=== PATIENT | female | born 1955 | race Caucasian/White ===

== ENCOUNTER 2017-07-31 06:49 | Day surgery (SDC) | payer OTHER ==
[~2017-07-31] VITALS: Ht 165.1 cm; Wt 70.4 kg
[2017-07-31] VITALS (11 sets, daily range): BP systolic 107–143; BP diastolic 61–78; PULSE 56–72
[2017-07-31 07:29] LABS: HEMATOCRIT 43.2 % (37.0-47.0); MEAN CELL VOLUME 92 fl (80.0-100.0); MEAN CORPUSCULAR HEMOGLOBIN 30 pg (27.0-31.0); MEAN CORPUSCULAR HGB CONC 32 g/dl (33.0-37.0); MEAN PLATELET VOLUME 10.2 fl (7.4-10.4); PLATELET COUNT 233 K/mm3 (130-400); RED BLOOD COUNT 4.72 M/mm3 (4.10-5.30); REDCELL DISTRIBUTION WIDTH-CV 12.1 % (11.5-14.5); WHITE BLOOD COUNT 7.5 K/mm3 (4.8-10.8)
[2017-07-31] MEDS ORDERED: PROAIR HFA0.09 MG/AC IH (07:36)
[2017-07-31] MEDS ORDERED: ASMANEX HF100 MCG/Ac IH (07:36)
[2017-07-31] MEDS ORDERED: NITROSTAT0.4 MG/TAB SL (07:36)
[2017-07-31] MEDS ORDERED: FIORICET 325 MG1 TA1 PO (07:37)
[2017-07-31 07:38] LABS: CALCIUM 9.8 mg/dL (8.4-10.2); CREATININE, serum 0.66 mg/dL (0.52-1.25); POTASSIUM 3.8 mmol/L (3.4-5.0)
[2017-07-31] MEDS ORDERED: ADVIL200 MG PO (07:39)
[2017-07-31] MEDS ORDERED: MULTIPLE VITAMI1 CAP PO (07:40)
[2017-07-31] MEDS ORDERED: ASPIRIN 81M81 MG/TA2 PO (07:41)
[2017-07-31] MEDS ORDERED: SUDAFED30 MG PO (07:41)
[2017-07-31] MEDS ORDERED: BENADRYL25 M2 PO (07:42)
[2017-07-31 07:48] LABS: PROTHROMBIN TIME 11.4 SECONDS (9.7-12.8)
== END 2017-07-31 16:08 | disposition home or self-care (01) ==
LOC: EUO 06:49
PROVIDERS: Internal Medicine Cardiovascular Disease
DX: R94.39 Abnormal result of other cardiovascular function study (principal); D64.9 Anemia, unspecified; K58.9 Irritable bowel syndrome, unspecified; G43.909 Migraine, unspecified, not intractable, without status migrainosus; Z82.49 Family history of ischemic heart disease and other diseases of the circulatory system
CPT/HCPCS: C1769; C1894; J1644; J2250; J2405; J3010; Q9967